=== PATIENT | female | born 1940 | race Caucasian/White ===

== ENCOUNTER 2017-05-31 13:25 | Outpatient (CLI) | payer MEDICARE ==
[2017-05-31] MEDS ORDERED: Gadobenate Dimeglumine 529 MG/1 ML (20ML VIAL) ONE (17:21)
--- NOTE | 2017-05-31 18:17 | CT ---
CT CERVICAL SPINE WITHOUT IV CONTRAST: Date: 05-31-17 History: Neck pain for two years. Headache. History of prior neck fusion. Comparison: 10-11-15 Technique: Contiguous axial CT images are obtained of the cervical spine from the skull base to the level of the T3 vertebral body. Sagittal and coronal reformatted images are provided. FINDINGS: Again noted is fusion of the C4-5 and C5-6 levels. There is straightening of the normal cervical dragan dotic curvature, also noted on the prior exam. No fracture or subluxation is seen involving the cervical spine. There is scattered facet degenerati ve changes again seen. There is a prominent central osteophyte at C5 which encroaches on the anterior aspect of the spinal cord. There is mild to moderate left sided neural foraminal narrowing again seen at the C5-6 level related to mild bony encroachment. There has been no significant interval change when compared to the prior exam. There are hypodense nodules seen in the left lobe of the thyroid gland. The right lobe of the thyroi d gland is not visualized. Prevertebral soft tissues are within normal limits. Vascular calcifications are again seen in the ca rotid arteries. IMPRESSION: 1. Stable hypodense nodules left lobe of the thyroid gland. While these are stable when compared to the study in 2016, no additional studies are available for direct comparison. 2. Stable post-surgical fusion of the C4-5 and C5-6 levels. 3. Scattered degenerative changes in the cervical spine which are unchanged when compared to the fermin or exam. No significant neural foraminal narrowing or central canal narrowing is present at any leve l although there is stable central posterior osteophyte formation posterior to the C5 vertebral body which does encroach upon the anterior aspect of the spinal cord. POS: AMBER
--- NOTE | 2017-05-31 21:43 | MRI ---
CERVICAL SPINE MRI WITH AND WITHOUT CONTRAST: Indication: Cervical radiculopathy. FINDINGS: There is obvious fusion with evidence of intradiscal space device related to anterior fusion which s pans the C4 through C6 segments. At the operative sites of C4-5 and C5-6, there are broad based oste ophyte ridges which mildly efface the central canal. C1-2, C2-3, and C3-4: No high grade central anal stenosis. C6-7: Mild disc osteophyte complex is present without high grade central canal stenosis. C7-T1: No significant central canal compromise. Throughout the cervical spine there is motion which does limit evaluation of the neural foramina. Un cinate process hypertrophy of the C4-5 and C5-6 segments results in mild to moderate bilateral neura l foraminal narrowing. Otherwise, no high grade foraminal stenosis of the cervical spine identified within limitations. No evidence of abnormal expansile cervical spinal cord lesion. There is no pathologic intramedullary enhancement. IMPRESSION: Post-operative and degenerative changes of the cervical spine as discussed above. POS: AMBER
== END 2017-05-31 13:26 | disposition home or self-care (01) ==
LOC: RAD 13:25 → TBSIIMAG 13:26
PROVIDERS: ATTEND Surgery
DX: M47.22 Other spondylosis with radiculopathy, cervical region (principal); Z98.1 Arthrodesis status
CPT/HCPCS: 72125; 72156; A9579

== ENCOUNTER 2018-10-11 12:05 | Outpatient (CLI) | payer MEDICARE ==
--- NOTE | 2018-10-11 13:33 | RAD ---
LEFT HIP TWO VIEWS: HISTORY: Left hip pain. COMPARISON: None. FINDINGS: No fracture. No malalignment. No atypical stress fracture of the femurs. The SI joints are unremarkable. Mild degenerative disease of the lower facet joints. IMPRESSION: No acute abnormality. POS: TPC
== END 2018-10-11 12:06 | disposition home or self-care (01) ==
LOC: RAD 12:05
PROVIDERS: ATTEND Nurse Practitioner Family
DX: M25.552 Pain in left hip (principal)

== ENCOUNTER 2019-08-07 11:07 | Outpatient (CLI) | payer MEDICARE ==
--- NOTE | 2019-08-07 12:42 | MMO ---
Bilateral MAMMO Bilat Screen [facility]. CLINICAL HISTORY: Patient is 79 years old and is seen for screening. The patient has no family history of breast cancer. The patient has no personal history of cancer. The patient has a history of right Stereotatic Biopsy in 2010 - benign, left cyst aspiration at age 26 - benign and left Excisional Biopsy more than 10 years ago - benign - tumor removed. VIEWS: The views performed were: bilateral craniocaudal with tomosynthesis and bilateral mediolateral oblique with tomosynthesis. FILMS COMPARED: The present examination has been compared to prior imaging studies performed at [facility] on 12/03/2009 and 04/11/2013. This study has been interpreted with the assistance of computer-aided detection. MAMMOGRAM FINDINGS: There are scattered fibroglandular densities. Finding 1: There are stable benign appearing calcifications seen in both breasts. Finding 2: There is a biopsy clip seen in the left breast. There are no suspicious masses, suspicious calcifications, or new areas of architectural distortion. IMPRESSION: THERE IS NO MAMMOGRAPHIC EVIDENCE OF MALIGNANCY. A ROUTINE FOLLOW-UP MAMMOGRAM IN 1 YEAR IS RECOMMENDED. THE RESULTS OF THIS EXAM WERE SENT TO THE PATIENT. ACR BI-RADS Category 2 - Benign finding MAMMOGRAPHY NOTE: 1. A negative mammogram report should not delay a biopsy if a dominant of clinically suspicious mass is present. 2. Approximately 10% to 15% of breast cancers are not detected by mammography. 3. Adenosis and dense breasts may obscure an underlying neoplasm. Reported by: SUKUMAR COTTON MD Electonically Signed: [id number]
== END 2019-08-07 11:08 | disposition home or self-care (01) ==
LOC: BICMAMMO 11:07
PROVIDERS: ATTEND Family Medicine
DX: Z12.31 Encounter for screening mammogram for malignant neoplasm of breast (principal); Z91.89 Other specified personal risk factors, not elsewhere classified
CPT/HCPCS: 77063; 77067

== ENCOUNTER 2019-10-02 12:38 | Outpatient (CLI) | payer MEDICARE ==
--- NOTE | 2019-10-02 14:04 | MRI ---
THORACIC SPINE MRI WITHOUT CONTRAST: HISTORY: Thoracic radiculopathy. COMPARISON: None. FINDINGS: Appropriate T1 marrow signal intensity of the thoracic vertebrae. Thoracic spine vertebral body heigh t is maintained. There is no fracture. No significant STIR hyperintensity to suggest vertebral body edema or ligamentous injury. Visualized mediastinum, lung parenchyma, solid organs and paraspinal soft tissues have appropriate si gnal intensity. Conus medullaris terminates at the superior aspect of L1. The thoracic cord has a normal size and sig nal intensity. No cord expansion. No cord malacia. Throughout the thoracic spine, the neural foramina are patent. T4-T5, T5-T6, T6-T7, T7-T8, T9-T10 and T11-T12 demonstrate desiccation with mild loss of disc space h eight. Minimal posterior disc bulges are identified. There is no significant central canal stenosis. IMPRESSION: 1. 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 No significant central canal andre nosis or neural foraminal narrowing. 2. No significant cord signal abnormality. Transcribed Date/Time: 10/02/2019 2:11 PM
== END 2019-10-02 12:39 | disposition home or self-care (01) ==
LOC: BICMRI 12:38
PROVIDERS: ATTEND Specialist
DX: M51.14 Intervertebral disc disorders with radiculopathy, thoracic region (principal)
CPT/HCPCS: 72146

== ENCOUNTER 2020-09-27 11:29 | Outpatient (CLI) | payer MEDICARE | END 2020-09-27 11:30 | disposition home or self-care (01) | LOC: BICMAMMO 11:29 | PROVIDERS: ATTEND Family Medicine | DX: Z12.31 Encounter for screening mammogram for malignant neoplasm of breast (principal); Z91.89 Other specified personal risk factors, not elsewhere classified; Z98.890 Other specified postprocedural states | CPT/HCPCS: 77063; 77067 ==

== ENCOUNTER 2021-06-25 09:35 | Inpatient (IN) | payer MEDICARE ==
[2021-06-25] MEDS ORDERED: Iopamidol-370 76% 500 ML 1 ML ONE (10:14)
[2021-06-25] MEDS ORDERED: Morphine 4 MG/ML VIAL ONE (10:38)
[2021-06-25 10:55] LABS: #Eosinphils 0.2 thou/uL (0.0-0.7); #Lymphocytes 1.7 thou/uL (1.20-3.40); #Monocytes 0.4 thou/uL (0.11-0.59); #Neutrophils 3.4 thou/uL (1.40-6.50); %Basophils 0.4 % (0.0-1.0); %Eosinophils 3.9 % (0.0-10.0); %Monocytes 7.7 % (0.0-10.0); Hemoglobin 11.9 g/dL (12.0-16.0); Mean Corpuscular HGB CONC 33.6 g/dL (32.0-36.0); Mean Corpuscular Hemoglobin 29.9 pg (27.0-31.0); Mean Corpuscular Volume 89.1 fL (78.0-98.0); Mean Platelet Volume 9.9 fL (7.4-10.4); Platelet Count 203 thou/uL (130-400); RBC Distribution Width 13.5 % (11.5-14.5); Red Blood Cell (RBC) Count 3.96 mill/uL (4.20-5.40); White Blood Cell (WBC) Count 5.7 thou/uL (4.8-10.8)
[2021-06-25 11:16] LABS: ALT (SGPT) 16 U/L (8-55); AST (SGOT) 22 U/L (5-34); Albumin 4.1 g/dL (3.4-4.8); Alkaline Phosphatase 75 U/L (40-110); Anion Gap 13 mmol/L (10-20); BUN (Urea Nitrogen) 13 mg/dL (9.8-20.1); Bilirubin, Total 0.5 mg/dL (0.2-1.2); Calc. Creatinine Clearance 0 mL/min (70-130); Calcium 9.8 mg/dL (7.8-10.44); Carbon Dioxide 24 mmol/L (23-31); Chloride 107 mmol/L (98-107); Globulin 2.8 g/dL (2.4-3.5); Glucose 111 mg/dL (83-110); Potassium 3.7 mmol/L (3.5-5.1); Protein, Total 6.9 g/dL (5.8-8.1); Sodium 140 mmol/L (136-145)
[2021-06-25] MEDS ORDERED: HYDROcodone/Acetaminophen 10/325 mg Tablet PO PRN ×2 (13:50)
[2021-06-25] MEDS ORDERED: Diazepam 5 MG TAB PO SCH (14:15)
[2021-06-25] MEDS ORDERED: Ketorolac Tromethamine 30 MG/ML VIAL ONE (14:29)
[2021-06-25 15:37] LABS: SARS-CoV-2 NAA Rapid Test Not Detected (NotDetected)
[2021-06-25 15:57] VITALS: BMI 27.4
[2021-06-25] MEDS: Morphine 4 MG/ML VIAL SLOW IVP PRN ×2 (16:05→20:45)
[2021-06-25 16:38] LABS: Bacteria/HPF None Seen HPF (None Seen); Bilirubin Negative (Negative); Blood, Urine Negative (Negative); Clarity Clear (Clear); Glucose, Urine (Dipstick) Normal (Negative); Ketone, Urine Negative (Negative); Leukocyte 75 Leu/uL (Negative); Nitrite Negative (Negative); Protein, Urine (Dipstick) Negative (Neg-Trace); RBC/HPF 0-3 HPF (0-3); Squamous Epithelial 0-3 HPF (0-3); Urobilinogen Normal mg/dL (Less than 2); WBC/HPF 0-3 HPF (0-3)
[2021-06-25 16:40] LABS: Specific Gravity, Urine 1.051 (1.002-1.036)
[2021-06-25] MEDS: Melatonin 3 MG TAB PO PRN (21:03)
[2021-06-26] MEDS: Morphine 4 MG/ML VIAL SLOW IVP PRN ×5 (00:27→23:26)
[2021-06-26 06:13] LABS: #Basophils 0.1 thou/uL (0.0-0.2); #Eosinphils 0.3 thou/uL (0.0-0.7); #Lymphocytes 2.4 thou/uL (1.20-3.40); #Monocytes 0.7 thou/uL (0.11-0.59); #Neutrophils 2.7 thou/uL (1.40-6.50); %Eosinophils 4.4 % (0.0-10.0); %Lymphocytes 39.1 % (21.0-51.0); %Monocytes 11.5 % (0.0-10.0); Hemoglobin 11.6 g/dL (12.0-16.0); Mean Corpuscular HGB CONC 31.9 g/dL (32.0-36.0); Mean Corpuscular Hemoglobin 28.6 pg (27.0-31.0); Mean Corpuscular Volume 89.7 fL (78.0-98.0); Mean Platelet Volume 10.3 fL (7.4-10.4); Platelet Count 194 thou/uL (130-400); RBC Distribution Width 13.7 % (11.5-14.5); Red Blood Cell (RBC) Count 4.05 mill/uL (4.20-5.40); White Blood Cell (WBC) Count 6.2 thou/uL (4.8-10.8)
[2021-06-26 06:27] LABS: Anion Gap 13 mmol/L (10-20); BUN (Urea Nitrogen) 17 mg/dL (9.8-20.1); Calc. Creatinine Clearance 56 mL/min (70-130); Calcium 9.8 mg/dL (7.8-10.44); Carbon Dioxide 25 mmol/L (23-31); Chloride 106 mmol/L (98-107); Glucose 114 mg/dL (83-110); Potassium 3.8 mmol/L (3.5-5.1); Sodium 140 mmol/L (136-145)
[2021-06-26] MEDS: Lidocaine 5% Patch TD SCH (09:10)
[2021-06-26] MEDS ORDERED: Hydroxychloroquine Sulfate 200 MG TAB PO SCH (12:15)
[2021-06-26] MEDS: fentaNYL 50 mcg/hour Patch TD SCH ×3 (13:00→18:00)
[2021-06-26] MEDS ORDERED: Fentanyl 100 MCG/2 ML VIAL ONE ×2 (13:14→14:53)
[2021-06-26] MEDS ORDERED: Lidocaine 2% PF 5 ML VIAL ONE (13:50)
[2021-06-26] MEDS ORDERED: Dexamethasone 20 MG/5 ML VIAL ONE (13:50)
[2021-06-26] MEDS ORDERED: PROPOFOL 200 MG/20 ML VIAL ONE (13:50)
[2021-06-26] MEDS ORDERED: PHENYLEPHRINE-NS 100 MCG/ML 10 ML SYRINGE ONE (13:50)
[2021-06-26] MEDS ORDERED: Ondansetron PF 4 MG/2 ML Vial ONE (13:50)
[2021-06-26] MEDS: Gabapentin 100 MG CAP PO SCH (16:03)
[2021-06-26] MEDS: Methocarbamol 500 MG TAB PO SCH ×2 (17:42→20:06)
[2021-06-26] MEDS: Lisinopril 20 MG TAB PO SCH (20:06)
[2021-06-26] MEDS: Atorvastatin Calcium 20 MG TAB PO SCH (20:06)
[2021-06-26] MEDS: Gabapentin 300 MG CAP PO SCH (20:06)
[2021-06-26] MEDS: Transdermal Patch Removal TOP SCH (20:07)
[2021-06-26] MEDS: Doxepin HCl 10 MG CAP PO SCH (20:09)
[2021-06-26] MEDS: Melatonin 3 MG TAB PO PRN (23:26)
[2021-06-27] MEDS: Methocarbamol 500 MG TAB PO SCH ×3 (08:39→20:09)
[2021-06-27] MEDS: Lidocaine 5% Patch TD SCH (08:39)
[2021-06-27] MEDS ORDERED: Gabapentin 100 MG CAP PO SCH (09:00)
[2021-06-27] MEDS ORDERED: Clopidogrel Bisulfate 75 MG TAB PO SCH (09:00)
[2021-06-27] MEDS ORDERED: Amlodipine 5 MG TAB PO SCH (09:00)
[2021-06-27] MEDS ORDERED: Hydroxychloroquine Sulfate 200 MG TAB PO SCH (09:00)
[2021-06-27] MEDS ORDERED: Leflunomide 10 mg Tablet PO SCH (09:00)
[2021-06-27] MEDS ORDERED: FLUoxetine HCl 20 MG CAP PO SCH (09:00)
[2021-06-27] MEDS ORDERED: Topiramate 100 MG TAB PO SCH (09:00)
[2021-06-27] MEDS: Morphine 4 MG/ML VIAL SLOW IVP PRN (11:09)
[2021-06-27] MEDS: Gabapentin 100 MG CAP PO SCH (12:59)
[2021-06-27 19:47] VITALS: BP 121/69; TEMP 98
[2021-06-27] MEDS: Doxepin HCl 10 MG CAP PO SCH (20:09)
[2021-06-27] MEDS: Atorvastatin Calcium 20 MG TAB PO SCH (20:10)
[2021-06-27] MEDS: Lisinopril 20 MG TAB PO SCH (20:10)
[2021-06-27] MEDS: Gabapentin 300 MG CAP PO SCH (20:10)
[2021-06-27] MEDS: Transdermal Patch Removal TOP SCH (20:11)
[2021-06-28] MEDS ORDERED: Hydroxychloroquine Sulfate 200 MG TAB PO SCH (09:00)
== END 2021-06-27 22:06 | DRG 552 ==
LOC: ERS 09:35 → ERHOLD 12:55 → T4-A 15:22 → OBSVTOIN 06-27 08:54
PROVIDERS: ADMIT Family Medicine; ATTEND Family Medicine
DX: M54.59 Other low back pain (principal); I48.0 Paroxysmal atrial fibrillation; M79.7 Fibromyalgia; R19.7 Diarrhea, unspecified; G89.4 Chronic pain syndrome; N20.0 Calculus of kidney; K76.0 Fatty (change of) liver, not elsewhere classified; Z20.822 Contact with and (suspected) exposure to COVID-19; Z90.49 Acquired absence of other specified parts of digestive tract; Z90.710 Acquired absence of both cervix and uterus; Z90.89 Acquired absence of other organs; Z98.42 Cataract extraction status, left eye; Z98.41 Cataract extraction status, right eye
CPT/HCPCS: 36415; 72146; 72148; 74177; 80048; 80053; 81001; 85025; 96374; 96375; J1100; J1885; J2001; J2270; J2405; J2704; J3010; U0002

== ENCOUNTER 2022-05-08 08:56 | Outpatient (CLI) | payer MEDICARE | END 2022-05-08 08:57 | disposition home or self-care (01) | LOC: TBSIIMAG 08:56 | PROVIDERS: ATTEND Specialist | DX: M47.26 Other spondylosis with radiculopathy, lumbar region (principal); M51.35 Other intervertebral disc degeneration, thoracolumbar region; M48.061 Spinal stenosis, lumbar region without neurogenic claudication; M47.816 Spondylosis without myelopathy or radiculopathy, lumbar region; M51.37 Other intervertebral disc degeneration, lumbosacral region; M48.07 Spinal stenosis, lumbosacral region; Q05.7 Lumbar spina bifida without hydrocephalus; M25.78 Osteophyte, vertebrae | CPT/HCPCS: 72148 ==

== ENCOUNTER 2023-03-05 13:14 | Outpatient (CLI) | payer MEDICARE | END 2023-03-05 13:15 | disposition home or self-care (01) | LOC: BICMAMMO 13:14 | PROVIDERS: ATTEND Family Medicine | DX: N63.21 Unspecified lump in the left breast, upper outer quadrant (principal); N60.22 Fibroadenosis of left breast; N60.21 Fibroadenosis of right breast; Z98.890 Other specified postprocedural states | CPT/HCPCS: 76642; 77066; G0279 ==

== ENCOUNTER → 2023-03-11 | Day surgery (SDC) | payer MEDICARE | LOC: BICULT 12:21 | PROVIDERS: ATTEND Family Medicine | DX: C50.812 Malignant neoplasm of overlapping sites of left female breast (principal); N63.25 Unspecified lump in the left breast, overlapping quadrants; R92.8 Other abnormal and inconclusive findings on diagnostic imaging of breast | CPT/HCPCS: 19083; 38505; 88305; 88341; 88342 ==

== ENCOUNTER 2023-04-01 10:29 | Day surgery (SDC) | payer MEDICARE ==
[2023-03-30 13:09] VITALS: BMI 28.3
[2023-04-01] MEDS ORDERED: Acetaminophen 500 MG TAB ONE (11:20)
[2023-04-01] MEDS ORDERED: Ketorolac Tromethamine 30 MG/ML VIAL ONE (11:52)
[2023-04-01] MEDS ORDERED: CEFAZOLIN 2 GM VIAL ONE ×2 (11:52→14:00)
[2023-04-01] MEDS ORDERED: Sodium Chloride 0.9% 100 ML ONE ×2 (11:52→14:00)
[2023-04-01] MEDS ORDERED: Lidocaine 1% MPF 2 ML VIAL ONE (11:52)
[2023-04-01] MEDS ORDERED: Lidocaine 2% PF 5 ML VIAL ONE (13:48)
[2023-04-01] MEDS ORDERED: Bupivacaine/Epinephrine 0.25% 30 ML VIAL ONE (13:48)
[2023-04-01] MEDS ORDERED: fentaNYL PF 100 MCG/2 ML SYRINGE ONE (13:56)
[2023-04-01] MEDS ORDERED: PROPOFOL 200 MG/20 ML VIAL ONE (14:19)
[2023-04-01] MEDS ORDERED: Lidocaine 1% PF 5 ML VIAL ONE (14:19)
[2023-04-01] MEDS ORDERED: Glycopyrrolate 0.2 MG/ML 5 ML SYRINGE ONE (14:19)
[2023-04-01] MEDS ORDERED: ePHEDrine Sulfate 50 MG/10 ML VIAL ONE (14:19)
== END 2023-04-01 16:34 | disposition home or self-care (01) ==
LOC: SDC 10:29
PROVIDERS: ATTEND Specialist
PROC: 0H95XZX Drainage of Chest Skin, External Approach, Diagnostic (ICD-10-PCS; principal; 2023-04-01)
PROC: 0JH60WZ Insertion of Totally Implantable Vascular Access Device into Chest Subcutaneous Tissue and Fascia, Open Approach (ICD-10-PCS; 2023-04-01)
DX: C50.912 Malignant neoplasm of unspecified site of left female breast (principal); I63.9 Cerebral infarction, unspecified; C77.0 Secondary and unspecified malignant neoplasm of lymph nodes of head, face and neck; G43.909 Migraine, unspecified, not intractable, without status migrainosus; Z90.49 Acquired absence of other specified parts of digestive tract; Z90.710 Acquired absence of both cervix and uterus; Z79.899 Other long term (current) drug therapy
CPT/HCPCS: 19083; 36561; 71045; 93005; C1788; 88305; 93010; J1642; J1885; J2001; J2704; J3490

== ENCOUNTER 2023-04-02 08:53 | Outpatient (CLI) | payer MEDICARE ==
[2023-04-02] MEDS ORDERED: Iopamidol 370 76% 100 ML VIAL ONE (10:11)
== END 2023-04-02 08:54 | disposition home or self-care (01) ==
LOC: CT 08:53
PROVIDERS: ATTEND Internal Medicine
DX: C50.412 Malignant neoplasm of upper-outer quadrant of left female breast (principal); R91.8 Other nonspecific abnormal finding of lung field
CPT/HCPCS: 71260; 74177; 78306; A9503; Q9967

== ENCOUNTER 2023-06-13 22:13 | Inpatient (IN) | payer MEDICARE ==
[2023-06-13 23:59] VITALS: BMI 27.9
[2023-06-14] MEDS ORDERED: Acetaminophen 325 MG TAB PO PRN (00:39)
[2023-06-14] MEDS ORDERED: Ondansetron PF 4 MG/2 ML Vial IVP PRN (00:39)
[2023-06-14] MEDS ORDERED: HYDROcodone/Acetaminophen 5/325 mg Tablet PO PRN (00:39)
[2023-06-14] MEDS ORDERED: Acetaminophen 650 MG Suppository PR PRN (00:39)
[2023-06-14] MEDS ORDERED: Ondansetron ODT 4 MG TAB PO PRN (00:39)
[2023-06-14] MEDS ORDERED: Sodium Chloride 0.9% 1,000 ML IV SCH (00:45)
[2023-06-14] MEDS ORDERED: Diphenoxylate HCl/Atropine Tablet PO PRN (00:56)
[2023-06-14] MEDS ORDERED: Vancomycin HCl 500 MG in Sodium Chloride 0.9% 100 ML IVPB SCH (01:15)
[2023-06-14 01:17] LABS: #Basophils 0.1 thou/uL (0.0-0.2); #Monocytes 0.7 thou/uL (0.11-0.59); #Neutrophils 15.6 thou/uL (1.40-6.50); %Basophils 0.3 % (0.0-1.0); %Eosinophils 0.2 % (0.0-10.0); %Lymphocytes 9.3 % (21.0-51.0); %Monocytes 3.9 % (0.0-10.0); %Neutrophils 85.3 % (42.0-75.0); Hematocrit 20.2 % (36.0-47.0); Hemoglobin 6.6 g/dL (12.0-16.0); Mean Corpuscular HGB CONC 32.7 g/dL (32.0-36.0); Mean Corpuscular Volume 98.1 fl (78.0-98.0); Mean Platelet Volume 11.6 fL (7.4-10.4); Platelet Count 119 10x3/uL (130-400); RBC Distribution Width 16.7 % (11.5-14.5); Red Blood Cell (RBC) Count 2.06 mill/uL (4.20-5.40); White Blood Cell (WBC) Count 18.2 10x3/uL (4.8-10.8)
[2023-06-14] MEDS ORDERED: Vancomycin Dose by Levels Sliding Scale (Wt <71) FS SCH (01:30)
[2023-06-14 01:38] LABS: Anion Gap 11 mmol/L (10-20); BUN (Urea Nitrogen) 17 mg/dL (9.8-20.1); Calc. Creatinine Clearance 21 mL/min (70-130); Calcium 7.2 mg/dL (7.8-10.44); Carbon Dioxide 17 mmol/L (23-31); Chloride 112 mmol/L (98-107); Estimated GFR 21; Glucose 88 mg/dL (83-110); Iron 54 ug/dL (50-170); Iron Binding Capacity, Total 243 mcg/dL (265-497); Potassium 3.4 mmol/L (3.5-5.1); Sodium 137 mmol/L (136-145)
[2023-06-14 01:48] LABS: Magnesium 0.8 mg/dL (1.6-2.6)
[2023-06-14 01:56] LABS: Thyroid Stimulating Hormone 1.7627 uIU/mL (0.35-4.94)
[2023-06-14] MEDS: fentaNYL 50 mcg/hour Patch TD SCH (02:00)
[2023-06-14] MEDS ORDERED: Potassium Chloride 20 MEQ in Premix Bag 1 BAG IVPB SCH (02:15)
[2023-06-14] MEDS ORDERED: Sodium Bicarb 50 MEQ/50 ML VIAL IVP SCH (02:15)
[2023-06-14] MEDS ORDERED: Magnesium Sulfate In Water 4 GM in Premix Bag 1 BAG IVPB SCH (02:15)
[2023-06-14 03:12] LABS: Bacteria/HPF None Seen HPF (None Seen); Bilirubin Negative (Negative); Blood, Urine Negative (Negative); CAUTI Indications for Culture Alt mental st,lethar; Clarity Clear (Clear); Glucose, Urine (Dipstick) Normal (Negative); Ketone, Urine Negative (Negative); Leukocyte Negative Leu/uL (Negative); Nitrite Negative (Negative); Protein, Urine (Dipstick) Negative (Neg-Trace); RBC/HPF 0-3 HPF (0-3); Specific Gravity, Urine 1.006 (1.002-1.036); Squamous Epithelial None Seen HPF (0-3); Urobilinogen Normal mg/dL (Less than 2); pH, Urine 5.5 (5.0-9.0)
[2023-06-14 03:14] LABS: Urine Culture Reflex No No
[2023-06-14 04:13] LABS: Ferritin 169.31 ng/mL (10-291)
[2023-06-14 04:19] LABS: Vitamin B12 Greater than 2000 pg/mL (211-911)
[2023-06-14] MEDS: Levothyroxine Sodium 125 MCG TAB PO SCH (05:50)
[2023-06-14] MEDS ORDERED: Lisinopril 10 MG TAB PO SCH (09:00)
[2023-06-14] MEDS ORDERED: Hydroxychloroquine Sulfate 200 MG TAB PO SCH (09:00)
[2023-06-14] MEDS: Topiramate 100 MG TAB PO SCH ×2 (09:00→20:31)
[2023-06-14] MEDS: FLUoxetine HCl 20 MG CAP PO SCH (09:01)
[2023-06-14] MEDS: Flecainide Acetate 100 MG TAB PO SCH ×2 (09:02→20:31)
[2023-06-14] MEDS: Leflunomide 10 mg Tablet PO SCH (09:02)
[2023-06-14] MEDS: Hydroxychloroquine Sulfate 200 MG TAB PO SCH (09:47)
[2023-06-14 09:51] LABS: Hematocrit 23.3 % (36.0-47.0); Hemoglobin 7.8 g/dL (12.0-16.0)
[2023-06-14 10:39] LABS: CK (CPK) 171 U/L (29-168); Magnesium 2.3 mg/dL (1.6-2.6); Uric Acid 9.5 mg/dL (2.6-6.0)
[2023-06-14 10:52] LABS: Albumin 3.6 g/dL (3.4-4.8); Anion Gap 11 mmol/L (10-20); BUN (Urea Nitrogen) 15 mg/dL (9.8-20.1); BUN/Creatinine Ratio 8.24; Calc. Creatinine Clearance 27 mL/min (70-130); Calcium 7.6 mg/dL (7.8-10.44); Carbon Dioxide 19 mmol/L (23-31); Chloride 115 mmol/L (98-107); Estimated GFR 28; Glucose 98 mg/dL (83-110); Phosphorus 3.1 mg/dL (2.3-4.7); Potassium 3.5 mmol/L (3.5-5.1); Sodium 141 mmol/L (136-145)
[2023-06-14] MEDS: Lactated Ringer's 1,000 ML IV SCH ×3 (11:59→18:51)
[2023-06-14] MEDS: Cefepime 1 GM in Sodium Chloride 0.9% 100 ML IVPB SCH (20:30)
[2023-06-14] MEDS: Atorvastatin Calcium 20 MG TAB PO SCH (20:31)
[2023-06-14] MEDS: Doxepin HCl 10 MG CAP PO SCH (20:31)
[2023-06-15] MEDS ORDERED: Zolpidem Tartrate 5 MG TAB PO SCH (01:15)
[2023-06-15] MEDS: Lactated Ringer's 1,000 ML IV SCH ×4 (01:23→21:28)
[2023-06-15 01:50] LABS: Vancomycin, Random 10.7 ug/mL (See Comment)
[2023-06-15] MEDS ORDERED: Vancomycin HCl 500 MG in Sodium Chloride 0.9% 100 ML IV SCH (03:00)
[2023-06-15 04:54] LABS: #Basophils 0.1 thou/uL (0.0-0.2); #Monocytes 0.8 thou/uL (0.11-0.59); #Neutrophils 12.5 thou/uL (1.40-6.50); %Basophils 0.4 % (0.0-1.0); %Eosinophils 0.2 % (0.0-10.0); %Lymphocytes 11.7 % (21.0-51.0); Hematocrit 23.8 % (36.0-47.0); Hemoglobin 7.7 g/dL (12.0-16.0); Mean Corpuscular HGB CONC 32.4 g/dL (32.0-36.0); Mean Platelet Volume 11.7 fL (7.4-10.4); Platelet Count 127 10x3/uL (130-400); RBC Distribution Width 17.2 % (11.5-14.5); Red Blood Cell (RBC) Count 2.48 mill/uL (4.20-5.40); White Blood Cell (WBC) Count 15.2 10x3/uL (4.8-10.8)
[2023-06-15 05:49] LABS: Phosphorus 3.7 mg/dL (2.3-4.7)
[2023-06-15 05:54] LABS: ALT (SGPT) 9 U/L (8-55); AST (SGOT) 15 U/L (5-34); Albumin 3.5 g/dL (3.4-4.8); Alkaline Phosphatase 117 U/L (40-110); Anion Gap 11 mmol/L (10-20); BUN (Urea Nitrogen) 11 mg/dL (9.8-20.1); Bilirubin, Total 0.2 mg/dL (0.2-1.2); Calc. Creatinine Clearance 36 mL/min (70-130); Calcium 8.2 mg/dL (7.8-10.44); Carbon Dioxide 20 mmol/L (23-31); Chloride 115 mmol/L (98-107); Estimated GFR 39; Globulin 1.9 g/dL (2.4-3.5); Glucose 88 mg/dL (83-110); Magnesium 1.8 mg/dL (1.6-2.6); Potassium 3.5 mmol/L (3.5-5.1); Protein, Total 5.4 g/dL (5.8-8.1); Sodium 142 mmol/L (136-145); Uric Acid 7.9 mg/dL (2.6-6.0)
[2023-06-15] MEDS: Levothyroxine Sodium 125 MCG TAB PO SCH (07:12)
[2023-06-15] MEDS: Flecainide Acetate 100 MG TAB PO SCH ×2 (08:56→20:07)
[2023-06-15] MEDS: Hydroxychloroquine Sulfate 200 MG TAB PO SCH (08:56)
[2023-06-15] MEDS: Topiramate 100 MG TAB PO SCH ×2 (08:57→20:07)
[2023-06-15] MEDS: Sodium Bicarbonate Tab 325 MG TAB PO SCH ×3 (08:57→20:07)
[2023-06-15] MEDS: FLUoxetine HCl 20 MG CAP PO SCH (08:57)
[2023-06-15] MEDS: Leflunomide 10 mg Tablet PO SCH (08:57)
[2023-06-15] MEDS ORDERED: Ergocalciferol 1.25 MG(50,000 UNITS) CAP PO SCH (09:00)
[2023-06-15] MEDS: Zolpidem Tartrate 5 MG TAB PO SCH (20:07)
[2023-06-15] MEDS: Atorvastatin Calcium 20 MG TAB PO SCH (20:07)
[2023-06-15] MEDS: Sucralfate 1 GM/10 ML UDCUP PO SCH (20:07)
[2023-06-15] MEDS: Doxepin HCl 10 MG CAP PO SCH (20:07)
[2023-06-15] MEDS: Cefepime 1 GM in Sodium Chloride 0.9% 100 ML IVPB SCH (21:24)
[2023-06-16] MEDS: Lactated Ringer's 1,000 ML IV SCH (05:52)
[2023-06-16] MEDS: Levothyroxine Sodium 125 MCG TAB PO SCH (05:52)
[2023-06-16 06:04] LABS: #Monocytes 0.7 thou/uL (0.11-0.59); #Neutrophils 11.2 thou/uL (1.40-6.50); %Basophils 0.3 % (0.0-1.0); %Eosinophils 0.2 % (0.0-10.0); %Lymphocytes 10.6 % (21.0-51.0); %Monocytes 5.2 % (0.0-10.0); %Neutrophils 82.9 % (42.0-75.0); Hemoglobin 8.1 g/dL (12.0-16.0); Mean Corpuscular HGB CONC 32.4 g/dL (32.0-36.0); Mean Corpuscular Hemoglobin 31.6 pg (27.0-31.0); Mean Corpuscular Volume 97.7 fl (78.0-98.0); Platelet Count 124 10x3/uL (130-400); RBC Distribution Width 16.9 % (11.5-14.5); Red Blood Cell (RBC) Count 2.56 mill/uL (4.20-5.40); White Blood Cell (WBC) Count 13.5 10x3/uL (4.8-10.8)
[2023-06-16 07:04] LABS: ALT (SGPT) 10 U/L (8-55); AST (SGOT) 15 U/L (5-34); Albumin 3.5 g/dL (3.4-4.8); Alkaline Phosphatase 126 U/L (40-110); Anion Gap 9 mmol/L (10-20); BUN (Urea Nitrogen) 7 mg/dL (9.8-20.1); Bilirubin, Total 0.3 mg/dL (0.2-1.2); Calc. Creatinine Clearance 46 mL/min (70-130); Calcium 8.5 mg/dL (7.8-10.44); Carbon Dioxide 23 mmol/L (23-31); Chloride 111 mmol/L (98-107); Estimated GFR 53; Globulin 1.8 g/dL (2.4-3.5); Glucose 89 mg/dL (83-110); Potassium 3.2 mmol/L (3.5-5.1); Protein, Total 5.3 g/dL (5.8-8.1); Sodium 140 mmol/L (136-145)
[2023-06-16] MEDS ORDERED: Potassium Chloride 20 MEQ TAB PO SCH (07:45)
[2023-06-16 08:11] LABS: Vancomycin, Random 9.2 ug/mL (See Comment)
[2023-06-16] MEDS ORDERED: Vancomycin 1 GM in Premix Bag 1 BAG IVPB SCH (09:00)
[2023-06-16] MEDS ORDERED: Vancomycin 1 GM/200 ML (FROZEN) BAG ONE (09:01)
[2023-06-16] MEDS: FLUoxetine HCl 20 MG CAP PO SCH (10:10)
[2023-06-16] MEDS: Flecainide Acetate 100 MG TAB PO SCH ×2 (10:10→20:51)
[2023-06-16] MEDS: Leflunomide 10 mg Tablet PO SCH (10:11)
[2023-06-16] MEDS: Topiramate 100 MG TAB PO SCH ×2 (10:11→20:51)
[2023-06-16] MEDS: Sucralfate 1 GM/10 ML UDCUP PO SCH ×4 (10:11→20:51)
[2023-06-16] MEDS: Metamucil PACK PER TUBE SCH (10:11)
[2023-06-16] MEDS: Sodium Bicarbonate Tab 325 MG TAB PO SCH ×3 (10:11→20:51)
[2023-06-16] MEDS: Hydroxychloroquine Sulfate 200 MG TAB PO SCH (10:11)
[2023-06-16] MEDS ORDERED: PROPOFOL 200 MG/20 ML VIAL ONE (10:38)
[2023-06-16 11:58] LABS: Magnesium 1.4 mg/dL (1.6-2.6)
[2023-06-16] MEDS: Potassium Chloride 20 MEQ in Premix Bag 1 BAG IVPB SCH ×2 (12:24→14:24)
[2023-06-16] MEDS: Acyclovir Sodium 350 MG in Sodium Chloride 0.9% 100 ML IVPB SCH ×2 (12:26→20:50)
[2023-06-16] MEDS: Cefepime 1 GM in Sodium Chloride 0.9% 100 ML IVPB SCH (13:15)
[2023-06-16] MEDS ORDERED: Magnesium Sulfate In Water 4 GM in Premix Bag 1 BAG IVPB SCH (14:15)
[2023-06-16] MEDS: Vancomycin 1 GM in Premix Bag 1 BAG IVPB SCH (14:24)
[2023-06-16] MEDS: Loperamide HCl 2 MG CAP PO PRN (14:26)
[2023-06-16] MEDS ORDERED: Potassium Chloride 20 MEQ in Premix Bag 1 BAG IVPB SCH (14:30)
[2023-06-16] MEDS: Doxepin HCl 10 MG CAP PO SCH (20:51)
[2023-06-16] MEDS: Diphenoxylate HCl/Atropine Tablet PO SCH (20:51)
[2023-06-16] MEDS: Atorvastatin Calcium 20 MG TAB PO SCH (20:51)
[2023-06-16] MEDS: Zolpidem Tartrate 5 MG TAB PO SCH (20:52)
[2023-06-17] MEDS: Cefepime 1 GM in Sodium Chloride 0.9% 100 ML IVPB SCH ×2 (00:12→12:44)
[2023-06-17] MEDS: Loperamide HCl 2 MG CAP PO PRN (00:12)
[2023-06-17] MEDS: fentaNYL 50 mcg/hour Patch TD SCH (00:22)
[2023-06-17] MEDS: Acyclovir Sodium 350 MG in Sodium Chloride 0.9% 100 ML IVPB SCH ×2 (04:22→11:20)
[2023-06-17] MEDS: Levothyroxine Sodium 125 MCG TAB PO SCH (05:37)
[2023-06-17 05:56] LABS: #Basophils 0.1 thou/uL (0.0-0.2); #Monocytes 0.8 thou/uL (0.11-0.59); #Neutrophils 10.3 thou/uL (1.40-6.50); %Basophils 0.4 % (0.0-1.0); %Eosinophils 0.2 % (0.0-10.0); %Lymphocytes 10.8 % (21.0-51.0); %Monocytes 6.6 % (0.0-10.0); %Neutrophils 81.3 % (42.0-75.0); Hematocrit 23.6 % (36.0-47.0); Hemoglobin 7.6 g/dL (12.0-16.0); Mean Corpuscular HGB CONC 32.2 g/dL (32.0-36.0); Mean Corpuscular Hemoglobin 31.3 pg (27.0-31.0); Mean Corpuscular Volume 97.1 fl (78.0-98.0); Mean Platelet Volume 11.1 fL (7.4-10.4); Platelet Count 127 10x3/uL (130-400); RBC Distribution Width 16.3 % (11.5-14.5); Red Blood Cell (RBC) Count 2.43 mill/uL (4.20-5.40); White Blood Cell (WBC) Count 12.6 10x3/uL (4.8-10.8)
[2023-06-17 06:28] LABS: ALT (SGPT) 8 U/L (8-55); AST (SGOT) 15 U/L (5-34); Albumin 3.3 g/dL (3.4-4.8); Alkaline Phosphatase 132 U/L (40-110); Anion Gap 11 mmol/L (10-20); BUN (Urea Nitrogen) 7 mg/dL (9.8-20.1); Bilirubin, Total 0.3 mg/dL (0.2-1.2); Calc. Creatinine Clearance 56 mL/min (70-130); Calcium 8.5 mg/dL (7.8-10.44); Carbon Dioxide 23 mmol/L (23-31); Chloride 110 mmol/L (98-107); Estimated GFR 67; Globulin 1.7 g/dL (2.4-3.5); Glucose 94 mg/dL (83-110); Sodium 141 mmol/L (136-145); Uric Acid 5.2 mg/dL (2.6-6.0)
[2023-06-17] MEDS ORDERED: Potassium Bicarbonate/Cit Ac 20 MEQ TAB PO SCH (06:45)
[2023-06-17] MEDS ORDERED: Epoetin (ESRD) 10,000 UNITS/ML VIAL SC SCH (08:00)
[2023-06-17] MEDS: FLUoxetine HCl 20 MG CAP PO SCH (08:32)
[2023-06-17] MEDS: Hydroxychloroquine Sulfate 200 MG TAB PO SCH (08:32)
[2023-06-17] MEDS: Sodium Bicarbonate Tab 325 MG TAB PO SCH ×2 (08:33→15:01)
[2023-06-17] MEDS: Leflunomide 10 mg Tablet PO SCH (08:33)
[2023-06-17] MEDS: Topiramate 100 MG TAB PO SCH (08:33)
[2023-06-17] MEDS: Potassium Chloride 20 MEQ in Premix Bag 1 BAG IVPB SCH ×3 (08:34→12:45)
[2023-06-17] MEDS: Flecainide Acetate 100 MG TAB PO SCH (08:34)
[2023-06-17] MEDS: Metamucil PACK PER TUBE SCH (08:37)
[2023-06-17] MEDS: Diphenoxylate HCl/Atropine Tablet PO SCH ×2 (08:46→15:02)
[2023-06-17] MEDS ORDERED: Amlodipine 5 MG TAB PO SCH (09:45)
[2023-06-17] MEDS: Sucralfate 1 GM/10 ML UDCUP PO SCH (15:02)
[2023-06-17] MEDS: Vancomycin 1 GM in Premix Bag 1 BAG IVPB SCH (15:02)
[2023-06-17 15:39] VITALS: BP 149/73; TEMP 97.9
[2023-06-18 08:38] LABS: Adenovirus F 40-41 Not Detected (Not Detected); Astrovirus Not Detected (Not Detected); C. difficile toxin A+B Not Detected (Not Detected); Campylobacter by PCR Not Detected (Not Detected); Cryptosporidium Not Detected (Not Detected); Cyclospora cayetanensis Not Detected (Not Detected); Entamoeba histolytica Not Detected (Not Detected); Enteroaggregative E. coli Not Detected (Not Detected); Enteropathogenic E. coli Not Detected (Not Detected); Enterotoxigenic E. coli Not Detected (Not Detected); Giardia lamblia Not Detected (Not Detected); Norovirus GI-GII Not Detected (Not Detected); Plesiomonas shigelloides Not Detected (Not Detected); Rotavirus A Not Detected (Not Detected); Salmonella Not Detected (Not Detected); Sapovirus Not Detected (Not Detected); Shiga-toxin-producing E coli Not Detected (Not Detected); Shigella/Enteroinvasive E coli Not Detected (Not Detected); Vibrio Not Detected (Not Detected); Vibrio cholerae Not Detected (Not Detected); Yersinia enterocolitica Not Detected (Not Detected)
[2023-06-18] MEDS ORDERED: Amlodipine 5 MG TAB PO SCH (09:00)
[2023-06-18] MEDS ORDERED: Magnesium Oxide 400 MG TAB PO SCH (09:00)
[2023-06-19] MEDS ORDERED: Hydroxychloroquine Sulfate 200 MG TAB PO SCH (09:00)
== END 2023-06-17 17:25 | disposition home or self-care (01) | DRG 683 ==
LOC: SURG A 23:15 → OBSVTOIN 06-14 10:51
PROVIDERS: ADMIT Student in an Organized Health Care Education/Training Program; ATTEND Internal Medicine
PROC: 0DBN8ZX Excision of Sigmoid Colon, Via Natural or Artificial Opening Endoscopic, Diagnostic (ICD-10-PCS; principal; 2023-06-16)
PROC: 0DB58ZX Excision of Esophagus, Via Natural or Artificial Opening Endoscopic, Diagnostic (ICD-10-PCS; 2023-06-16)
DX: N17.9 Acute kidney failure, unspecified (principal); E87.21 Acute metabolic acidosis; K52.1 Toxic gastroenteritis and colitis; K22.10 Ulcer of esophagus without bleeding; E86.0 Dehydration; N18.2 Chronic kidney disease, stage 2 (mild); D63.1 Anemia in chronic kidney disease; E87.6 Hypokalemia; I48.91 Unspecified atrial fibrillation; C50.912 Malignant neoplasm of unspecified site of left female breast; I12.9 Hypertensive chronic kidney disease with stage 1 through stage 4 chronic kidney disease, or unspecified chronic kidney disease; E78.5 Hyperlipidemia, unspecified; E03.9 Hypothyroidism, unspecified; D72.829 Elevated white blood cell count, unspecified; Z90.49 Acquired absence of other specified parts of digestive tract; Z90.89 Acquired absence of other organs; Z98.41 Cataract extraction status, right eye; Z98.42 Cataract extraction status, left eye; M06.9 Rheumatoid arthritis, unspecified; Z79.899 Other long term (current) drug therapy; G89.29 Other chronic pain; M54.9 Dorsalgia, unspecified; E83.42 Hypomagnesemia; T45.1X5A Adverse effect of antineoplastic and immunosuppressive drugs, initial encounter; K57.30 Diverticulosis of large intestine without perforation or abscess without bleeding
CPT/HCPCS: 36415; 36430; 70450; 71045; 80048; 80053; 80202; 81001; 82306; 82550; 82607; 82728; 83540; 83550; 83630; 83735; 84100; 84145; 84443; 84550; 85025; 86850; 86900; 86901; 87324; 87328; 87329; 87449; 87507; 88305; 88341; 88342; J0133; J0692; J1642; J2704; J3370; J3370-JW; J3475; J3480; J3490; J7050; J7120; P9016; Q4081

== ENCOUNTER 2023-07-16 10:31 | Outpatient (CLI) | payer MEDICARE ==
[2023-07-16] MEDS ORDERED: Iopamidol 370 76% 100 ML VIAL ONE (13:42)
== END 2023-07-16 10:32 | disposition home or self-care (01) ==
LOC: BICCT 10:31
PROVIDERS: ATTEND Internal Medicine
DX: C50.412 Malignant neoplasm of upper-outer quadrant of left female breast (principal); R91.1 Solitary pulmonary nodule
CPT/HCPCS: 71260; 74177

== ENCOUNTER 2023-08-11 18:28 | Inpatient (IN) | payer MEDICARE, OTHER ==
[2023-08-11 19:15] LABS: #Eosinphils 0.2 thou/uL (0.0-0.7); #Monocytes 0.6 thou/uL (0.11-0.59); #Neutrophils 7.3 thou/uL (1.40-6.50); %Basophils 0.3 % (0.0-1.0); %Eosinophils 2.4 % (0.0-10.0); %Lymphocytes 11.9 % (21.0-51.0); %Monocytes 6.5 % (0.0-10.0); %Neutrophils 78.3 % (42.0-75.0); Hematocrit 28.1 % (36.0-47.0); Mean Corpuscular Hemoglobin 31.5 pg (27.0-31.0); Mean Corpuscular Volume 98.3 fl (78.0-98.0); Mean Platelet Volume 12.2 fL (7.4-10.4); Platelet Count 135 10x3/uL (130-400); RBC Distribution Width 14.6 % (11.5-14.5); Red Blood Cell (RBC) Count 2.86 mill/uL (4.20-5.40); White Blood Cell (WBC) Count 9.3 10x3/uL (4.8-10.8)
[2023-08-11] MEDS ORDERED: Acetaminophen 500 MG TAB ONE (19:20)
[2023-08-11 19:38] LABS: Chloride 113 mmol/L (98-107); Potassium 3.6 mmol/L (3.5-5.1); Sodium 139 mmol/L (136-145)
[2023-08-11 19:39] LABS: ALT (SGPT) 8 U/L (8-55); AST (SGOT) 16 U/L (5-34); Alkaline Phosphatase 72 U/L (40-110); Anion Gap 9 mmol/L (10-20); BUN (Urea Nitrogen) 15 mg/dL (9.8-20.1); Bilirubin, Total 0.3 mg/dL (0.2-1.2); Calc. Creatinine Clearance 0 mL/min (70-130); Calcium 9.4 mg/dL (7.8-10.44); Carbon Dioxide 21 mmol/L (23-31); Estimated GFR 51; Globulin 2.4 g/dL (2.4-3.5); Glucose 111 mg/dL (83-110); Magnesium 1.5 mg/dL (1.6-2.6); Protein, Total 6.4 g/dL (5.8-8.1)
[2023-08-11 19:42] LABS: Troponin I 0.012 ng/mL (< 0.028)
[2023-08-11] MEDS ORDERED: Magnesium 2 GM/50 ML BAG (IN WATER) ONE (20:31)
[2023-08-11] MEDS ORDERED: Sodium Chloride 0.9% 100 ML ONE (20:31)
[2023-08-11] MEDS ORDERED: CEFAZOLIN 2 GM VIAL ONE (20:31)
[2023-08-11] MEDS: Lactated Ringer's 1,000 ML IV SCH (20:45)
[2023-08-11] MEDS ORDERED: Ondansetron ODT 4 MG TAB SL PRN (21:00)
[2023-08-11] MEDS ORDERED: Ondansetron PF 4 MG/2 ML Vial IVP PRN ×2 (21:00→21:11)
[2023-08-11] MEDS ORDERED: Acetaminophen 325 MG TAB PO PRN ×2 (21:00→21:11)
[2023-08-11] MEDS ORDERED: Lidocaine 1% w/Epinephrine 1:100K 20 ML VIAL ONE (21:08)
[2023-08-11] MEDS ORDERED: Ondansetron ODT 4 MG TAB PO PRN (21:11)
[2023-08-11 21:36] LABS: Phosphorus 3.2 mg/dL (2.3-4.7)
[2023-08-12 00:24] LABS: Bacteria/HPF None Seen HPF (None Seen); Bilirubin Negative (Negative); Blood, Urine Negative (Negative); CAUTI Indications for Culture Pelvic or flank pain; Clarity Clear (Clear); Glucose, Urine (Dipstick) Normal (Negative); Ketone, Urine Negative (Negative); Leukocyte 500 Leu/uL (Negative); Nitrite Negative (Negative); Protein, Urine (Dipstick) Negative (Neg-Trace); RBC/HPF 0-3 HPF (0-3); Specific Gravity, Urine 1.003 (1.002-1.036); Squamous Epithelial 0-3 HPF (0-3); Urobilinogen Normal mg/dL (Less than 2); WBC/HPF 21-50 HPF (0-3)
[2023-08-12 00:25] LABS: Urine Culture Reflex Yes Yes
[2023-08-12 04:46] LABS: #Eosinphils 0.2 thou/uL (0.0-0.7); #Monocytes 0.5 thou/uL (0.11-0.59); #Neutrophils 6.1 thou/uL (1.40-6.50); %Basophils 0.5 % (0.0-1.0); %Lymphocytes 15.7 % (21.0-51.0); %Monocytes 5.9 % (0.0-10.0); %Neutrophils 75.5 % (42.0-75.0); Hematocrit 28.4 % (36.0-47.0); Hemoglobin 9.1 g/dL (12.0-16.0); Mean Corpuscular Hemoglobin 32.2 pg (27.0-31.0); Mean Corpuscular Volume 100.4 fl (78.0-98.0); Mean Platelet Volume 12.3 fL (7.4-10.4); Platelet Count 129 10x3/uL (130-400); RBC Distribution Width 14.6 % (11.5-14.5); Red Blood Cell (RBC) Count 2.83 mill/uL (4.20-5.40); White Blood Cell (WBC) Count 8.1 10x3/uL (4.8-10.8)
[2023-08-12 05:14] LABS: Anion Gap 10 mmol/L (10-20); BUN (Urea Nitrogen) 13 mg/dL (9.8-20.1); Calc. Creatinine Clearance 0 mL/min (70-130); Calcium 9.2 mg/dL (7.8-10.44); Carbon Dioxide 20 mmol/L (23-31); Chloride 117 mmol/L (98-107); Estimated GFR 59; Glucose 88 mg/dL (83-110); Potassium 3.5 mmol/L (3.5-5.1); Sodium 143 mmol/L (136-145)
[2023-08-12] MEDS: Mupirocin 2% Ointment 22 GM Tube TOP SCH ×3 (09:35→20:40)
[2023-08-12] MEDS ORDERED: Iopamidol-370 76% 500 ML MDV (1 ML CHARGE) ONE (11:09)
[2023-08-12] MEDS ORDERED: predniSONE 5 MG TAB PO PRN (13:55)
[2023-08-12] MEDS ORDERED: Ondansetron ODT 4 MG TAB PO PRN (13:55)
[2023-08-12 15:59] VITALS: BMI 24.5
[2023-08-12] MEDS: Lactated Ringer's 1,000 ML IV SCH (16:45)
[2023-08-12] MEDS: Sodium Chloride 0.9% 1,000 ML IV SCH (16:46)
[2023-08-12] MEDS: Hydroxychloroquine Sulfate 200 MG TAB PO SCH (16:47)
[2023-08-12] MEDS: hydrALAZINE 20 MG/ML VIAL SLOW IVP PRN (16:47)
[2023-08-12] MEDS: Topiramate 100 MG TAB PO SCH (20:39)
[2023-08-12] MEDS: Atorvastatin Calcium 20 MG TAB PO SCH (20:39)
[2023-08-12] MEDS: Zolpidem Tartrate 5 MG TAB PO SCH (20:39)
[2023-08-12] MEDS: Gabapentin 300 MG CAP PO SCH (20:39)
[2023-08-12] MEDS ORDERED: Lisinopril 10 MG TAB PO SCH (21:00)
[2023-08-12] MEDS ORDERED: Hydroxychloroquine Sulfate 200 MG TAB PO SCH (21:00)
[2023-08-12] MEDS ORDERED: Flecainide Acetate 100 MG TAB PO SCH (21:00)
[2023-08-13] MEDS: Sodium Chloride 0.9% 1,000 ML IV SCH ×3 (00:38→21:26)
[2023-08-13 04:32] LABS: #Eosinphils 0.3 thou/uL (0.0-0.7); #Monocytes 0.5 thou/uL (0.11-0.59); #Neutrophils 4.8 thou/uL (1.40-6.50); %Basophils 0.4 % (0.0-1.0); %Eosinophils 3.5 % (0.0-10.0); %Lymphocytes 22.2 % (21.0-51.0); %Monocytes 6.8 % (0.0-10.0); %Neutrophils 66.8 % (42.0-75.0); Hematocrit 27.6 % (36.0-47.0); Hemoglobin 8.9 g/dL (12.0-16.0); Mean Corpuscular HGB CONC 32.2 g/dL (32.0-36.0); Mean Corpuscular Hemoglobin 31.4 pg (27.0-31.0); Mean Corpuscular Volume 97.5 fl (78.0-98.0); Mean Platelet Volume 12.3 fL (7.4-10.4); Platelet Count 138 10x3/uL (130-400); RBC Distribution Width 14.4 % (11.5-14.5); Red Blood Cell (RBC) Count 2.83 mill/uL (4.20-5.40); White Blood Cell (WBC) Count 7.2 10x3/uL (4.8-10.8)
[2023-08-13] MEDS: hydrALAZINE 20 MG/ML VIAL SLOW IVP PRN (04:52)
[2023-08-13 05:04] LABS: Anion Gap 12 mmol/L (10-20); BUN (Urea Nitrogen) 13 mg/dL (9.8-20.1); Calc. Creatinine Clearance 49 mL/min (70-130); Calcium 8.9 mg/dL (7.8-10.44); Carbon Dioxide 18 mmol/L (23-31); Chloride 117 mmol/L (98-107); Estimated GFR 68; Glucose 99 mg/dL (83-110); Potassium 3.5 mmol/L (3.5-5.1); Sodium 143 mmol/L (136-145)
[2023-08-13] MEDS: Levothyroxine Sodium 125 MCG TAB PO SCH (06:33)
[2023-08-13] MEDS ORDERED: NIFEdipine XL 30 MG ER.TAB PO SCH (09:00)
[2023-08-13] MEDS ORDERED: Amlodipine 5 MG TAB PO SCH (09:00)
[2023-08-13] MEDS ORDERED: Potassium Chloride 20 MEQ TAB PO SCH (09:15)
[2023-08-13] MEDS: Lisinopril 20 MG TAB PO SCH ×2 (09:25→21:28)
[2023-08-13] MEDS: Gabapentin 300 MG CAP PO SCH ×2 (09:25→21:27)
[2023-08-13] MEDS: Hydroxychloroquine Sulfate 200 MG TAB PO SCH (09:26)
[2023-08-13] MEDS: Clopidogrel Bisulfate 75 MG TAB PO SCH (09:26)
[2023-08-13] MEDS: Saccharomyces boulardii 250 MG CAP PO SCH (09:27)
[2023-08-13] MEDS: Topiramate 100 MG TAB PO SCH ×2 (09:27→21:27)
[2023-08-13] MEDS: Flecainide 50 MG TAB PO SCH ×2 (09:27→21:28)
[2023-08-13] MEDS: FLUoxetine HCl 20 MG CAP PO SCH (09:27)
[2023-08-13] MEDS: Mupirocin 2% Ointment 22 GM Tube TOP SCH ×3 (12:22→21:28)
[2023-08-13] MEDS ORDERED: hydrALAZINE 20 MG/ML VIAL SLOW IVP PRN (16:17)
[2023-08-13] MEDS: Zolpidem Tartrate 5 MG TAB PO SCH (21:27)
[2023-08-13] MEDS: Atorvastatin Calcium 20 MG TAB PO SCH (21:28)
[2023-08-13] MEDS: NIFEdipine XL 30 MG ER.TAB PO SCH (21:28)
[2023-08-13] MEDS: Doxepin HCl 10 MG CAP PO SCH (22:16)
[2023-08-14 04:04] LABS: #Basophils 0.1 thou/uL (0.0-0.2); #Eosinphils 0.2 thou/uL (0.0-0.7); #Monocytes 0.4 thou/uL (0.11-0.59); #Neutrophils 3.6 thou/uL (1.40-6.50); %Basophils 0.9 % (0.0-1.0); %Eosinophils 3.3 % (0.0-10.0); %Lymphocytes 25.6 % (21.0-51.0); %Monocytes 7.7 % (0.0-10.0); %Neutrophils 62.2 % (42.0-75.0); Hematocrit 26.2 % (36.0-47.0); Hemoglobin 8.2 g/dL (12.0-16.0); Mean Corpuscular HGB CONC 31.3 g/dL (32.0-36.0); Mean Corpuscular Hemoglobin 31.1 pg (27.0-31.0); Mean Corpuscular Volume 99.2 fl (78.0-98.0); Mean Platelet Volume 12.9 fL (7.4-10.4); Platelet Count 110 10x3/uL (130-400); RBC Distribution Width 14.4 % (11.5-14.5); Red Blood Cell (RBC) Count 2.64 mill/uL (4.20-5.40); White Blood Cell (WBC) Count 5.8 10x3/uL (4.8-10.8)
[2023-08-14 04:40] LABS: Anion Gap 8 mmol/L (10-20); BUN (Urea Nitrogen) 11 mg/dL (9.8-20.1); Calc. Creatinine Clearance 54 mL/min (70-130); Calcium 8.7 mg/dL (7.8-10.44); Carbon Dioxide 18 mmol/L (23-31); Chloride 119 mmol/L (98-107); Estimated GFR 75; Glucose 88 mg/dL (83-110); Magnesium 1.8 mg/dL (1.6-2.6); Potassium 3.3 mmol/L (3.5-5.1); Sodium 142 mmol/L (136-145)
[2023-08-14] MEDS: Sodium Chloride 0.9% 1,000 ML IV SCH (06:53)
[2023-08-14] MEDS: Gabapentin 300 MG CAP PO SCH ×2 (09:54→20:36)
[2023-08-14] MEDS: Flecainide 50 MG TAB PO SCH (09:55)
[2023-08-14] MEDS: Clopidogrel Bisulfate 75 MG TAB PO SCH (09:55)
[2023-08-14] MEDS: FLUoxetine HCl 20 MG CAP PO SCH (09:55)
[2023-08-14] MEDS: Saccharomyces boulardii 250 MG CAP PO SCH (09:55)
[2023-08-14] MEDS: Topiramate 100 MG TAB PO SCH ×2 (09:55→20:36)
[2023-08-14] MEDS: NIFEdipine XL 30 MG ER.TAB PO SCH (09:55)
[2023-08-14] MEDS: Hydroxychloroquine Sulfate 200 MG TAB PO SCH ×2 (09:56→20:35)
[2023-08-14] MEDS: Mupirocin 2% Ointment 22 GM Tube TOP SCH ×3 (09:56→20:38)
[2023-08-14] MEDS: Lisinopril 20 MG TAB PO SCH (09:57)
[2023-08-14] MEDS ORDERED: Potassium Chloride 20 MEQ TAB PO SCH (10:00)
[2023-08-14] MEDS ORDERED: Levothyroxine Sodium 50 MCG TAB PO SCH (10:15)
[2023-08-14] MEDS ORDERED: Levothyroxine Sodium 125 MCG TAB PO SCH (10:15)
[2023-08-14] MEDS: Levothyroxine Sodium 125 MCG TAB PO SCH (11:29)
[2023-08-14 14:29] LABS: Free T4 (Free Thyroxine) 1.08 ng/dL (0.70-1.48)
[2023-08-14] MEDS: Carvedilol 6.25 MG TAB PO SCH (17:51)
[2023-08-14] MEDS: Zolpidem Tartrate 5 MG TAB PO SCH (20:35)
[2023-08-14] MEDS: Atorvastatin Calcium 20 MG TAB PO SCH (20:37)
[2023-08-14] MEDS: Amiodarone 200 MG TAB PO SCH (20:37)
[2023-08-14] MEDS: Doxepin HCl 10 MG CAP PO SCH (21:43)
[2023-08-15] MEDS: Levothyroxine Sodium 125 MCG TAB PO SCH (06:44)
[2023-08-15] MEDS: Gabapentin 300 MG CAP PO SCH ×2 (09:15→22:15)
[2023-08-15] MEDS: Clopidogrel Bisulfate 75 MG TAB PO SCH (09:16)
[2023-08-15] MEDS: Saccharomyces boulardii 250 MG CAP PO SCH (09:16)
[2023-08-15] MEDS: Amiodarone 200 MG TAB PO SCH ×2 (09:16→22:16)
[2023-08-15] MEDS: FLUoxetine HCl 20 MG CAP PO SCH (09:16)
[2023-08-15] MEDS: Carvedilol 6.25 MG TAB PO SCH ×2 (09:17→16:13)
[2023-08-15] MEDS: Topiramate 100 MG TAB PO SCH ×2 (09:17→22:15)
[2023-08-15] MEDS: Mupirocin 2% Ointment 22 GM Tube TOP SCH ×3 (09:17→22:17)
[2023-08-15] MEDS: Hydroxychloroquine Sulfate 200 MG TAB PO SCH ×2 (09:23→22:28)
[2023-08-15] MEDS ORDERED: Potassium Chloride 20 MEQ TAB PO SCH (15:00)
[2023-08-15] MEDS: Atorvastatin Calcium 20 MG TAB PO SCH (22:16)
[2023-08-15] MEDS: Doxepin HCl 10 MG CAP PO SCH (22:16)
[2023-08-15] MEDS: Zolpidem Tartrate 5 MG TAB PO SCH (22:16)
[2023-08-16] MEDS: Levothyroxine Sodium 125 MCG TAB PO SCH (05:37)
[2023-08-16] MEDS: Gabapentin 300 MG CAP PO SCH (08:23)
[2023-08-16] MEDS: Mupirocin 2% Ointment 22 GM Tube TOP SCH ×2 (08:24→15:08)
[2023-08-16] MEDS: Clopidogrel Bisulfate 75 MG TAB PO SCH (08:24)
[2023-08-16] MEDS: Topiramate 100 MG TAB PO SCH (08:24)
[2023-08-16] MEDS: FLUoxetine HCl 20 MG CAP PO SCH (08:24)
[2023-08-16] MEDS: Saccharomyces boulardii 250 MG CAP PO SCH (08:24)
[2023-08-16] MEDS: Amiodarone 200 MG TAB PO SCH (08:24)
[2023-08-16] MEDS: Carvedilol 6.25 MG TAB PO SCH (08:24)
[2023-08-16] MEDS: Hydroxychloroquine Sulfate 200 MG TAB PO SCH (08:27)
[2023-08-16 11:51] VITALS: BP 143/83; TEMP 98
[2023-08-16] MEDS ORDERED: Sacubitril 24MG/Valsartan 26 MG TAB PO SCH (21:00)
== END 2023-08-16 16:38 | disposition home or self-care (01) | DRG 315 ==
LOC: ERS 18:28 → ERHOLD 20:43 → 2SW 08-12 12:34 → OBSVTOIN 08-13 16:08
PROVIDERS: ADMIT Physician Assistant; ATTEND Internal Medicine
PROC: 4A00X4Z Measurement of Central Nervous Electrical Activity, External Approach (ICD-10-PCS; principal; 2023-08-13)
PROC: 0HQ0XZZ Repair Scalp Skin, External Approach (ICD-10-PCS; 2023-08-13)
DX: I42.9 Cardiomyopathy, unspecified (principal); I50.22 Chronic systolic (congestive) heart failure; N39.0 Urinary tract infection, site not specified; J21.9 Acute bronchiolitis, unspecified; I65.23 Occlusion and stenosis of bilateral carotid arteries; I11.0 Hypertensive heart disease with heart failure; M06.9 Rheumatoid arthritis, unspecified; I48.0 Paroxysmal atrial fibrillation; M54.9 Dorsalgia, unspecified; G89.29 Other chronic pain; E03.9 Hypothyroidism, unspecified; E78.5 Hyperlipidemia, unspecified; C50.912 Malignant neoplasm of unspecified site of left female breast; D63.0 Anemia in neoplastic disease; E83.42 Hypomagnesemia; M79.7 Fibromyalgia; E87.6 Hypokalemia; Z79.899 Other long term (current) drug therapy; Z79.890 Hormone replacement therapy; Z90.49 Acquired absence of other specified parts of digestive tract; Z90.89 Acquired absence of other organs; Z98.41 Cataract extraction status, right eye; Z98.42 Cataract extraction status, left eye; Z90.712 Acquired absence of cervix with remaining uterus; Z92.21 Personal history of antineoplastic chemotherapy; Z82.49 Family history of ischemic heart disease and other diseases of the circulatory system; E86.0 Dehydration; S01.01XA Laceration without foreign body of scalp, initial encounter; W18.39XA Other fall on same level, initial encounter
CPT/HCPCS: 12002; 36415; 36416; 70450; 70544; 70547; 70551; 71275; 72125; 80048; 80053; 81001; 83735; 84100; 84439; 84443; 84481; 84484; 85025; 87086; 93005; 93306; 93880; 95711; 95819; 96361; 96365; 96367; 96375; 96376; G0378; J0360; J3475; J3490; J7050; Q9967

== ENCOUNTER 2023-09-23 13:21 | Outpatient (CLI) | payer MEDICARE ==
[2023-09-23 14:45] LABS: #Basophils 0.1 10x3/uL (0.0-0.2); #Eosinphils 0.2 10x3/uL (0.0-0.5); #Monocytes 0.5 10x3/uL (0.0-1.1); %Basophils 0.8 % (0.0-2.0); %Eosinophils 2.8 % (0.0-6.0); %Lymphocytes 26.4 % (18.0-47.0); %Monocytes 7.5 % (0.0-10.0); %Neutrophils 62.3 % (40.0-75.0); Hematocrit 33.1 % (34.9-44.5); Hemoglobin 10.3 g/dL (12.0-15.5); Mean Corpuscular HGB CONC 31.1 g/dL (32.0-36.0); Mean Corpuscular Hemoglobin 29.7 pg (27.0-33.0); Mean Corpuscular Volume 95.4 fl (81.6-98.3); Mean Platelet Volume 12.8 fl (7.4-10.4); Platelet Count 191 10x3/uL (150-450); RBC Distribution Width 13.4 % (11.5-14.5); Red Blood Cell (RBC) Count 3.47 10x6/uL (3.90-5.03); White Blood Cell (WBC) Count 6.4 10x3/uL (3.5-10.5)
[2023-09-23 14:47] LABS: Anion Gap 15 mmol/L (10-20); BUN (Urea Nitrogen) 17 mg/dL (9.8-20.1); Calc. Creatinine Clearance 0 mL/min (70-130); Calcium 9.4 mg/dL (7.8-10.44); Carbon Dioxide 22 mmol/L (23-31); Chloride 110 mmol/L (98-107); Estimated GFR 41; Glucose 104 mg/dL (83-110); Potassium 3.8 mmol/L (3.5-5.1); Sodium 143 mmol/L (136-145)
== END 2023-09-23 13:22 | disposition home or self-care (01) ==
LOC: LABBT 13:21
PROVIDERS: ATTEND Specialist
DX: Z01.818 Encounter for other preprocedural examination (principal); C50.912 Malignant neoplasm of unspecified site of left female breast
CPT/HCPCS: 71046; 80048; 85025

== ENCOUNTER 2023-10-27 10:26 | Outpatient (CLI) | payer MEDICARE | END 2023-10-27 10:27 | disposition home or self-care (01) | LOC: BICCT 10:26 | PROVIDERS: ATTEND Internal Medicine | DX: C50.919 Malignant neoplasm of unspecified site of unspecified female breast (principal); Z95.828 Presence of other vascular implants and grafts; Z90.49 Acquired absence of other specified parts of digestive tract | CPT/HCPCS: 71260; 74177 ==

== ENCOUNTER 2024-02-01 10:43 | Outpatient (CLI) | payer MEDICARE | END 2024-02-01 10:44 | disposition home or self-care (01) | LOC: BICMAMMO 10:43 | PROVIDERS: ATTEND Internal Medicine | DX: Z13.820 Encounter for screening for osteoporosis (principal); M85.851 Other specified disorders of bone density and structure, right thigh; M85.852 Other specified disorders of bone density and structure, left thigh | CPT/HCPCS: 77080 ==

== ENCOUNTER 2024-11-02 08:54 | Outpatient (CLI) | payer MEDICARE | END 2024-11-02 08:55 | disposition home or self-care (01) | LOC: BICMAMMO 08:54 | PROVIDERS: ATTEND Specialist | DX: C50.412 Malignant neoplasm of upper-outer quadrant of left female breast (principal); N60.02 Solitary cyst of left breast | CPT/HCPCS: 76642; 77066; G0279 ==